=== PATIENT | male | born 1980 | race American Indian/Alaskan Native ===

== ENCOUNTER 2019-10-15 16:07 | Emergency (ER) | payer BC ==
[2019-10-15 16:31] VITALS: BP 119/60
[2019-10-15] MEDS ORDERED: KETOROLAC 30 MG/1 ML INJ IM ONE (17:16)
[2019-10-15] MEDS ORDERED: traMADol 50 MG TAB PO ONE (17:17)
--- NOTE | 2019-10-15 17:22 | Emergency Department Report ---
ED Back Pain/Injury HPI - General Chief Complaint: Back Pain/Injury Stated Complaint: SEVERE BACK/MID PAIN Time Seen by Provider: 10/15/19 17:15 Source: patient Limitations: No Limitations - History of Present Illness Initial Comments: 38-year-old -[place] male presents to the emergency room for lower lumbar sacral back pain for several weeks. Patient states that he had gotten better and now his head is gotten worse to the point where he is not able to even move from the chair. Patient states that he does have some radiation to his buttocks right greater than left. Patient denies any urinary or bowel incontinence. Patient denies any injury to his back. Patient states he started taking ibuprofen when it first happened and then he started taking Tylenol 500 m g 2 tablets. His last dose of ibuprofen was this morning. Patient denies any past medical history takes no medications on a daily basis and does not have a primary care provider MD Complaint: back pain Onset/Timin -: week(s) Similar Symptoms Previously: No Place: work Radiation: left leg (Right greater than left), right leg Severity: severe Severity scale (0 -10): 10 Quality: dull Consistency: constant Improves With: none, movement, walking Worsens With: none Associated Symptoms: denies other symptoms - Related Data Previous Rx's Medication Instructions Recorded Last Taken Type Ibuprofen [Motrin 800 MG tab] 800 mg PO Q8HR PRN #21 tablet 10/15/19 Unknown Rx Methocarbamol [Robaxin] 500 mg PO TID PRN #21 tablet 10/15/19 Unknown Rx traMADoL [Ultram 50 MG tab] 50 mg PO Q6HR PRN #12 tablet 10/15/19 Unknown Rx Allergies Allergy/AdvReac Type Severity Reaction Status Date / Time No Known Allergies Allergy Unverified 10/15/19 16:31 ED Review of Systems ROS: Stated complaint: SEVERE BACK/MID PAIN Other details as noted in HPI Comment: All other systems reviewed and negative ED Past Medical Hx - Past Medical History Previous Medical History?: No - Surgical History Past Surgical History?: Yes Additional Surgical History: sinus - Social History Smoking Status: Never Smoker Substance Use Type: None - Medications Home Medications: Home Medications Medication Instructions Recorded Confirmed Last Taken Type Ibuprofen [Motrin 800 MG tab] 800 mg PO Q8HR PRN #21 tablet 10/15/19 Unknown Rx Methocarbamol [Robaxin] 500 mg PO TID PRN #21 tablet 10/15/19 Unknown Rx traMADoL [Ultram 50 MG tab] 50 mg PO Q6HR PRN #12 tablet 10/15/19 Unknown Rx ED Physical Exam - General Limitations: No Limitations General appearance: alert, in distress - Head Head exam: Present: atraumatic, normocephalic - Eye Eye exam: Present: normal appearance - ENT ENT exam: Present: mucous membranes moist - Respiratory Respiratory exam: Present: normal lung sounds bilaterally. Absent: respiratory distress - Cardiovascular Cardiovascular Exam: Present: regular rate, normal rhythm. Absent: systolic murmur, diastolic murmur, rubs, gallop - Back Exam Back exam: Present: tenderness, muscle spasm, vertebral tenderness - Expanded Back Exam Expanded Back exam: Sciatic Notch Tenderness: Left, Right, Positive Straight Leg Raise: Left, Right - Neurological Exam Neurological exam: Present: alert, oriented X3 - Psychiatric Psychiatric exam: Present: normal affect, normal mood - Skin Skin exam: Present: warm, dry, intact, normal color. Absent: rash ED Course Vital Signs 10/15/19 16:19 Temperature 98 F Pulse Rate 82 Respiratory 20 Rate Blood Pressure 119/60 O2 Sat by Pulse 98 Oximetry - Reevaluation(s) Reevaluation #1: 10/15/19 18:24 Patient reports he feels much better after having medications. ED Medical Decision Making - Radiology Data Radiology results: report reviewed Referring Physician:TED NASCIMENTOPatient Name:PABLO DARBYPatient ID:[id number] of :[id number]:MaleAccession:[id number] Date:[id number] Status:Finalized Findings [facility] [address] [place] [address] XRay Report Signed Patient: PABLO DARBY MR#: [id number] : 1980 Acct:[id number] Age/Sex: 38 / M ADM Date: 10/15/19 Loc: ED Attending Dr: Ordering Physician: ADRIÁN JONES Date of Service: 10/15/19 Procedure(s): XR spine lumbosacral 2-3V Accession Number(s): [id number] cc: ADRIÁN JONES Fluoro Time In Minutes: Lumbar spine-3 views INDICATION: Worsening back pain. COMPARISON: None. IMPRESSION: Normal alignment. No significant discogenic DJD or facet arthropathy. No acute osseous or soft tissue abnormality. Signer Name: Jose Mix MD Signed: 10/15/2019 5:51 PM Workstation Name: [id number] Transcribed By: MARK Dictated By: Jose Mix MD Electronically Authenticated By: Jose Mix MD Signed Date/Time: 10/15/191750 DD/ 49 - Medical Decision Making 38-year-old -[place] male presents to the emergency room for lower lumbar sacral back pain for several weeks. Patient states that he had gotten better and now his head is gotten worse to the point where he is not able to even move from the chair. Patient states that he does have some radiation to his buttocks right greater than left. Patient denies any urinary or bowel incontinence. Patient denies any injury to his back. Patient states he started taking ibuprofen when it first happened and then he started taking Tylenol 500 mg 2 tablets. His last dose of ibuprofen was this morning. Patient denies any past medical history takes no medications on a daily basis and does not have a primary care provider. Pain medication given. X-ray of lumbar sacral ordered. X-ray of back shows no acute abnormalities. On discharging home on tramadol, Robaxin and ibuprofen to use to help with back pain and muscle spasms. Given a handout on sciatica which will help with exercises to relieve some of the pain in your back. Is very important for you to follow-up with your primary care provider I have listed their information below for your convenience. Critical care attestation.: If time is entered above; I have spent that time in minutes in the direct care of this critically ill patient, excluding procedure time. ED Disposition Clinical Impression: Acute back pain less than 4 weeks duration, Sciatica Disposition: TO HOME OR SELFCARE Is pt being admited?: No Does the pt Need Aspirin: No Condition: Stable Instructions: Lumbar Radiculopathy (ED), Acute Low Back Pain (ED) Additional Instructions: X-ray of back shows no acute abnormalities. On discharging home on tramadol, Robaxin and ibuprofen to use to help with back pain and muscle spasms. Given a handout on sciatica which will help with exercises to relieve some of the pain in your back. Is very important for you to follow-up with your primary care provider I have listed their information below for your convenience. Prescriptions: Ibuprofen [Motrin 800 MG tab] 800 mg PO Q8HR PRN #21 tablet PRN Reason: Pain , Severe (7-10) Methocarbamol [Robaxin] 500 mg PO TID PRN #21 tablet PRN Reason: Muscle Spasm traMADoL [Ultram 50 MG tab] 50 mg PO Q6HR PRN #12 tablet PRN Reason: Pain , Severe (7-10) Referrals: ARACELI HALL MD [Staff Physician] - 3-5 Days Forms: Work/School Release Form(ED)
--- NOTE | 2019-10-15 17:55 | XRay Report ---
Lumbar spine-3 views INDICATION: Worsening back pain. COMPARISON: None. IMPRESSION: Normal alignment. No significant discogenic DJD or facet arthropathy. No acute osseous or soft tissue abnormality. Signer Name: Jose Mix MD Signed: 10/15/2019 5:51 PM Workstation Name: [id number]
== END 2019-10-15 18:25 | disposition home or self-care (01) ==
LOC: ED 16:07
DX: M54.42 Lumbago with sciatica, left side (principal); Z79.899 Other long term (current) drug therapy
CPT/HCPCS: 72100; 96372; 99283; J1885

== ENCOUNTER 2020-11-15 03:27 | Emergency (ER) | payer BC ==
[2020-11-15 04:50] VITALS: BP 131/79
[2020-11-15] MEDS ORDERED: IPRATROPIUM/ALBUTEROL SULFATE 3 ML AMPUL.NEB IH ONE (04:51)
[2020-11-15] MEDS ORDERED: predniSONE 20 MG TAB PO ONE (04:51)
--- NOTE | 2020-11-15 04:55 | Emergency Department Report ---
- General Chief Complaint: Medical Clearance Stated Complaint: CONGESTION/SOB/HEADACHE Source: patient Mode of arrival: Stretcher Limitations: No Limitations - History of Present Illness Initial Comments: Patient is a 39-year-old -[place] male with a history of asthma and chronic recurrent allergic rhinitis who presents to the ED with complaint of acute onset persistent nasal and sinus congestion, frontal sinus pressure, persistent dry cough with wheezing and intermittent shortness of breath for the last 1 month, despite using his albuterol inhaler as needed at home. Patient states that in the last 1 week, his symptoms have worsened despite using wugw-wgb-reojvlt medications and his albuterol inhaler. Patient denies fever, chills, nausea, vomiting, chest pain, dizziness, sore throat, back pain, abdominal pain, diarrhea, headache, change in vision or syncope. MD Complaint: cough, rhinorrhea, nasal congestion, sinus pain -: Sudden, month(s) (1) Severity: severe Severity scale (0 -10): 6 Quality: sharp, aching Consistency: constant Improves With: nothing Worsens With: nothing Associated Symptoms: denies other symptoms, rhinorrhea, nasal congestion, cough, shortness of breath. denies: fever, chills, myalgias, diaphoresis, headache, sore throat, stiff neck, chest pain, abdominal pain, nausea, diarrhea, dysuria, confusion, right sweats, weight loss, hoarseness, ear pain Treatments Prior to Arrival: none - Related Data Previous Rx's Medication Instructions Recorded Last Taken Type Ibuprofen [Motrin 800 MG tab] 800 mg PO Q8HR PRN #21 tablet 10/15/19 Unknown Rx Methocarbamol [Robaxin] 500 mg PO TID PRN #21 tablet 10/15/19 Unknown Rx traMADoL [Ultram 50 MG tab] 50 mg PO Q6HR PRN #12 tablet 10/15/19 Unknown Rx Azithromycin [Zithromax Z-SAJAN] 250 mg PO DAILY #6 tablet 11/15/20 Unknown Rx Benzonatate [Tessalon Perles] 100 mg PO Q8HR #30 capsule 11/15/20 Unknown Rx Cetirizine HCl [Zyrtec 10mg tab] 10 mg PO DAILY #30 tablet 11/15/20 Unknown Rx methylPREDNISolone [Medrol 4MG 4 mg PO DAILY #21 tab.ds.pk 11/15/20 Unknown Rx DOSEPAK (21 tabs)] Allergies Allergy/AdvReac Type Severity Reaction Status Date / Time No Known Allergies Allergy Unverified 10/15/19 16:31 ED Review of Systems ROS: Stated complaint: CONGESTION/SOB/HEADACHE Other details as noted in HPI Constitutional: denies: chills, fever Eyes: denies: eye pain, eye discharge, vision change ENT: congestion, other (Frontal and maxillary sinus pressure). denies: ear pain, throat pain Respiratory: cough, shortness of breath, wheezing Cardiovascular: denies: chest pain, palpitations Endocrine: no symptoms reported Gastrointestinal: denies: abdominal pain, nausea, vomiting, diarrhea Genitourinary: denies: urgency, dysuria Musculoskeletal: denies: back pain, joint swelling, arthralgia Skin: denies: rash, lesions Neurological: headache. denies: weakness, paresthesias Psychiatric: denies: anxiety, depression Hematological/Lymphatic: denies: easy bleeding, easy bruising ED Past Medical Hx - Past Medical History Hx Asthma: Yes - Surgical History Additional Surgical History: sinus - Social History Smoking Status: Never Smoker Substance Use Type: None - Medications Home Medications: Home Medications Medication Instructions Recorded Confirmed Last Taken Type Ibuprofen [Motrin 800 MG tab] 800 mg PO Q8HR PRN #21 tablet 10/15/19 Unknown Rx Methocarbamol [Robaxin] 500 mg PO TID PRN #21 tablet 10/15/19 Unknown Rx traMADoL [Ultram 50 MG tab] 50 mg PO Q6HR PRN #12 tablet 10/15/19 Unknown Rx Azithromycin [Zithromax Z-SAJAN] 250 mg PO DAILY #6 tablet 11/15/20 Unknown Rx Benzonatate [Tessalon Perles] 100 mg PO Q8HR #30 capsule 11/15/20 Unknown Rx Cetirizine HCl [Zyrtec 10mg tab] 10 mg PO DAILY #30 tablet 11/15/20 Unknown Rx methylPREDNISolone [Medrol 4MG 4 mg PO DAILY #21 tab.ds.pk 11/15/20 Unknown Rx DOSEPAK (21 tabs)] ED Physical Exam - General Limitations: No Limitations General appearance: alert, in no apparent distress - Head Head exam: Present: atraumatic, normocephalic, normal inspection - Eye Eye exam: Present: normal appearance, PERRL, EOMI Pupils: Present: normal accommodation - ENT ENT exam: Present: normal orophraynx, mucous membranes moist, normal external ear exam, other (grossly congested nasal passages) - Neck Neck exam: Present: normal inspection, full ROM - Respiratory Respiratory exam: Present: wheezes (Mildly diffuse coarse wheezes throughout). Absent: respiratory distress, rales, rhonchi, stridor, chest wall tenderness, accessory muscle use, decreased breath sounds, prolonged expiratory - Cardiovascular Cardiovascular Exam: Present: regular rate, normal rhythm, normal heart sounds. Absent: systolic murmur, diastolic murmur, rubs, gallop - GI/Abdominal GI/Abdominal exam: Present: soft, normal bowel sounds. Absent: tenderness, rebound, hyperactive bowel sounds, hypoactive bowel sounds, organomegaly - Extremities Exam Extremities exam: Present: normal inspection, full ROM, normal capillary refill - Back Exam Back exam: Present: normal inspection, full ROM. Absent: tenderness, CVA tenderness (R), CVA tenderness (L), muscle spasm, paraspinal tenderness, rash noted - Neurological Exam Neurological exam: Present: alert, oriented X3, CN II-XII intact, normal gait, reflexes normal - Psychiatric Psychiatric exam: Present: normal affect, normal mood - Skin Skin exam: Present: warm, dry, intact, normal color. Absent: rash ED Course Vital Signs 11/15/20 11/15/20 04:47 05:43 Temperature 97.7 F Pulse Rate 68 Pulse Rate [ 78 Bilateral] Respiratory 20 Rate Respiratory 20 Rate [Bilateral ] Blood Pressure 131/79 O2 Sat by Pulse 95 Oximetry ED Medical Decision Making - Radiology Data Radiology results: report reviewed, image reviewed [facility] [address] [place] [address] XRay Report Signed Patient: PABLO DARBY MR#: [id number] : 1980 Acct:[id number] Age/Sex: 39 / M ADM Date: 11/15/20 Loc: ED Attending Dr: Ordering Physician: ADRIÁN PRABHAKAR Date of Service: 11/15/20 Procedure(s): XR chest 1V ap Accession Number(s): [id number] cc: ADRIÁN PRABHAKAR Fluoro Time In Minutes: CHEST 1 VIEW 11/15/2020 4:14 AM INDICATION / CLINICAL INFORMATION: cough. COMPARISON: None available. FINDINGS: SUPPORT DEVICES: None. HEART / MEDIASTINUM: No significant abnormality. LUNGS / PLEURA: Clear lungs. No significant pleural effusion. No pneumothorax. ADDITIONAL FINDINGS: No significant additional findings. IMPRESSION: 1. No acute abnormality of the chest. Signer Name: Ilya Cabrera MD Signed: 11/15/2020 5:27 AM Workstation Name: [id number] Transcribed By: MN Dictated By: Ilya Cabrera MD Electronically Authenticated By: lIya Cabrera MD Signed Date/Time: 11/15/20526 DD/ 6 TD/TT: Print - Medical Decision Making This is a 39-year-old -[place] male with a history of asthma and chronic recurrent allergic rhinitis who presents to the ED with complaint of acute onset persistent nasal and sinus congestion, frontal sinus pressure, persistent dry cough with wheezing and intermittent shortness of breath for the last 1 month, despite using his albuterol inhaler as needed at home. Patient states that in the last 1 week, his symptoms have worsened despite using offw-ghx-ogisxvu medications and his albuterol inhaler. In the ED, patient is alert and oriented x3 and is not in any distress. Patient received DuoNeb treatment in the ED and also received oral prednisone in the ED. Chest x-ray showed no acute cardiopulmonary abnormalities or pneumonitis. On reevaluation, patient's wheezing resolved and patient felt better. The oxygen saturation ranged from 99% to 100% in room air. Patient was then discharged home on medication and advised to follow-up with his primary care physician in 7 to 10 days for reevaluation. Patient advised return to the ED immediately if symptoms get worse. - Differential Diagnosis Asthma; Bronchitis; pneumonia; Sinusitis; Alergic rhinitis; URI Critical care attestation.: If time is entered above; I have spent that time in minutes in the direct care of this critically ill patient, excluding procedure time. ED Disposition Clinical Impression: Acute upper respiratory infection, Acute bronchitis with asthma with acute exacerbation, Acute allergic rhinitis due to pollen Acute maxillary sinusitis, unspecified Qualifiers: Recurrence: non-recurrent Qualified Code(s): J01.00 - Acute maxillary sinusitis, unspecified Disposition: - TO HOME OR SELFCARE Is pt being admited?: No Does the pt Need Aspirin: No Condition: Stable Instructions: Cough, Adult, Pvmw-wz-Iivz, Sinusitis, Adult, Daam-zy-Nruj, Allergic Rhinitis, Adult, Sdoo-yf-Iycx, Acute Bronchitis, Adult, Unas-eq-Wmzz, Upper Respiratory Infection, Adult, Hsdf-yh-Wrsn, Asthma, Adult, Veiq-ag-Jglr, Acute Bronchitis (ED) Additional Instructions: Take medications with food, drink plenty of fluids and follow up with your Primary care physician in 7-10 days for reevaluation. Return to the ED immediately if symptoms get worse. Prescriptions: methylPREDNISolone [Medrol 4MG DOSEPAK (21 tabs)] 4 mg PO DAILY #21 tab.ds.pk Benzonatate [Tessalon Perles] 100 mg PO Q8HR #30 capsule Azithromycin [Zithromax Z-SAJAN] 250 mg PO DAILY #6 tablet Cetirizine HCl [Zyrtec 10mg tab] 10 mg PO DAILY #30 tablet Referrals: [facility] [Provider Group] - 7-10 days Forms: Work/School Release Form(ED) Time of Disposition: 04:57 Print Language: KUWAITI
--- NOTE | 2020-11-15 05:31 | XRay Report ---
CHEST 1 VIEW 11/15/2020 4:14 AM INDICATION / CLINICAL INFORMATION: cough. COMPARISON: None available. FINDINGS: SUPPORT DEVICES: None. HEART / MEDIASTINUM: No significant abnormality. LUNGS / PLEURA: Clear lungs. No significant pleural effusion. No pneumothorax. ADDITIONAL FINDINGS: No significant additional findings. IMPRESSION: 1. No acute abnormality of the chest. Signer Name: Ilya Cabrera MD Signed: 11/15/2020 5:27 AM Workstation Name: [id number]
== END 2020-11-15 08:43 | disposition home or self-care (01) ==
LOC: ED 03:27
DX: J06.9 Acute upper respiratory infection, unspecified (principal); J45.901 Unspecified asthma with (acute) exacerbation; J20.9 Acute bronchitis, unspecified; J01.00 Acute maxillary sinusitis, unspecified; J00 Acute nasopharyngitis [common cold]; Z79.899 Other long term (current) drug therapy
CPT/HCPCS: 71045; 94640; 94644; 99283

== ENCOUNTER 2021-04-16 10:10 | Outpatient (CLI) | payer BC ==
[2021-04-16 10:34] LABS: Basophils % (Auto) 0.6 % (0.0-1.8); Eosinophils % (Auto) 0.5 % (0.0-4.3); Hematocrit 41.9 % (35.5-45.6); Hemoglobin 13.3 gm/dl (11.8-15.2); Lymphocytes # (Auto) 1.9 K/mm3 (1.2-5.4); Lymphocytes % (Auto) 28.9 % (13.4-35.0); Mean Corpuscular HGB Conc 32 % (32-34); Mean Corpuscular Volume 90 fl (84-94); Monocytes # (Auto) 0.4 K/mm3 (0.0-0.8); Monocytes % (Auto) 6.2 % (0.0-7.3); Platelet Count 213 K/mm3 (140-440); Red Blood Count 4.64 M/mm3 (3.65-5.03); Red Cell Distribution Width 12.5 % (13.2-15.2)
== END 2021-04-16 10:11 | disposition home or self-care (01) ==
LOC: LAB 10:10
PROVIDERS: ATTEND Otolaryngology Sleep Medicine
DX: J33.1 Polypoid sinus degeneration (principal)
CPT/HCPCS: 36415; 85025